=== PATIENT | female | born 1995 | race American Indian/Alaskan Native ===

== ENCOUNTER 2019-12-27 14:56 | Emergency (ER) | payer SELFPAY ==
[2019-12-27 15:17] VITALS: BP 124/89
--- NOTE | 2019-12-27 15:19 | Emergency Department Report ---
Blank Doc - Documentation Documentation: 24-year-old female that present swith SOB and URI symptoms. This initial assessment/diagnostic orders/clinical plan/treatment(s) is/are subject to change based on patient's health status, clinical progression and re- assessment by fellow clinical providers in the ED. Further treatment and workup at subsequent clinical providers discretion. Patient/guardians urged not to elope from the ED as their condition may be serious if not clinically assessed and managed. Initial orders include: 1- Patient sent to [facility] for further evaluation and treatment 2- CXR
--- NOTE | 2019-12-27 15:53 | Emergency Department Report ---
Minor Respiratory - HPI Chief Complaint: Upper Respiratory Infection Stated Complaint: SWETA/SICK Time Seen by Provider: 12/27/19 15:18 Duration: 2 Days Pain Location: Chest Severity: mild Minor Respiratory: Yes Rhinorrhea, Yes Able to Tolerate Fluids, No Sore Throat, No Ear Pain, No Cough, No Sick Contacts, No Hemoptysis, No Chest Pain, No Shortness of Breath, No Fever Other History: Patient is a 24-year-old -[place] female who comes to the ER today with cold-like symptoms including rhinorrhea and head congestion. [place] concerned that she has coronavirus. She has no cough. She has no fever or chills. Patient is ambulatory non-ill and nontoxic. She has not traveled and has no known ill contacts. X-ray as ordered by LEELEE in triage is negative for acute process ED Review of Systems ROS: Stated complaint: SWETA/SICK Other details as noted in HPI Comment: All other systems reviewed and negative ED Past Medical Hx - Past Medical History Previous Medical History?: No - Surgical History Past Surgical History?: Yes Additional Surgical History: Left ACL, Fracture of left femur - Family History Family history: no significant - Social History Smoking Status: Current Every Day Smoker Substance Use Type: Alcohol Minor Respiratory Exam - Exam General: Vital signs noted. No distress. Alert and acting appropriately. HEENT: Yes Moist Mucous Membranes, No Pharyngeal Erythema, No Pharyngeal Exudates, No Rhinorrhea, No Conjuctival Injection, No Frontal Tenderness, No Maxillary Tenderness Ear: Neither TM Bulge, Neither TM Erythema, Neither EAC Pain, Neither EAC Discharge Neck: Yes Supple, No Adenopathy Lungs: Yes Good Air Exchange, No Wheezes, No Ronchi, No Stridor, No Cough, No Labored Respirations, No Retractions, No Use of Accessory Muscles, No Other Abnormal Lung Sounds Heart: Yes Regular, No Murmur Abdomen: Yes Normal Bowel Sounds, No Tenderness, No Peritoneal Signs Skin: No Rash, No Edema Neurologic: Alert and oriented, no deficits. Musculoskeletal: Unremarkable. ED Course Vital Signs 12/27/19 15:15 Temperature 98.6 F Pulse Rate 83 Respiratory 20 Rate Blood Pressure 124/89 O2 Sat by Pulse 99 Oximetry - Reevaluation(s) Reevaluation #1: 12/27/19 15:57 Patient educated on handwashing and her concerns for coronavirus ED Medical Decision Making - Radiology Data Radiology results: report reviewed, image reviewed interpreted by me: Negative for acute process No acute process - Medical Decision Making X-ray negative for acute process - Differential Diagnosis Rule out pneumonia Critical care attestation.: If time is entered above; I have spent that time in minutes in the direct care of this critically ill patient, excluding procedure time. ED Disposition Clinical Impression: Common cold Disposition: DC-01 TO HOME OR SELFCARE Is pt being admited?: No Does the pt Need Aspirin: No Condition: Stable Instructions: Cold Symptoms (ED) Additional Instructions: WASH HANDS STAY WELL HYDRATED OVER THE COUNTER COLD SYMPTOM RELIEF NEEDED MOTRIN OR TYLENOL FOR PAIN OR FEVER CHEST XRAY NORMAL! Referrals: MERLENE BUCKLEY MD [Staff Physician] - 3-5 Days Time of Disposition: 15:52
--- NOTE | 2019-12-27 15:54 | XRay Report ---
CHEST 2 VIEWS INDICATION: sob. COMPARISON: None. FINDINGS: Support devices: None. Heart: Within normal limits. Pulmonary vasculature: Normal. Lungs/pleura: The lungs are normally expanded and clear. No airspace disease or pleural effusion. No pneumothorax. Additional findings: None. IMPRESSION: 1. Normal chest Signer Name: Trevor France MD Signed: 12/27/2019 3:49 PM Workstation Name: [id number]
== END 2019-12-27 16:40 | disposition home or self-care (01) ==
LOC: ED 14:56
DX: J00 Acute nasopharyngitis [common cold] (principal); F17.200 Nicotine dependence, unspecified, uncomplicated; Z98.890 Other specified postprocedural states
CPT/HCPCS: 71046; 99283

== ENCOUNTER 2020-12-12 15:54 | Emergency (ER) | payer SELFPAY ==
[2020-12-12 16:44] VITALS: BP 103/66
--- NOTE | 2020-12-12 17:43 | Emergency Department Report ---
ED General Adult HPI - General Chief complaint: Medical Clearance Stated complaint: LFT BREAST PAIN/RING Time Seen by Provider: 12/12/20 16:40 Source: patient Mode of arrival: Ambulatory Limitations: No Limitations - History of Present Illness Initial comments: 25-year-old P female with a left breast nipple piercing which has been in place since 2013 presents emerged department complaining of a few day history of left nipple redness swelling painful discharge with no no discharge of which she has a strong suspicion is infection so presents emerge department for further evaluation and treatment options. Ports no fever, chills, sweats reports no known trauma. Reports no nausea, no vomiting. Severity scale (0 -10): 9 Quality: dull, constant Consistency: constant Improves with: none Worsens with: movement (And catching) Associated Symptoms: denies: cough, diaphoresis, loss of appetite, malaise, nausea/vomiting, rash, shortness of breath, syncope, weakness Treatments Prior to Arrival: none - Related Data Previous Rx's Medication Instructions Recorded Last Taken Type Dicloxacillin Sodium 500 mg PO QID #40 capsule 12/12/20 Unknown Rx Ketorolac [Toradol] 10 mg PO Q6H PRN #14 tablet 12/12/20 Unknown Rx Allergies Allergy/AdvReac Type Severity Reaction Status Date / Time No Known Allergies Allergy Unverified 12/27/19 15:05 ED Review of Systems ROS: Stated complaint: LFT BREAST PAIN/RING Other details as noted in HPI Comment: All other systems reviewed and negative ED Past Medical Hx - Past Medical History Previous Medical History?: No - Surgical History Additional Surgical History: Left ACL, Fracture of left femur - Social History Smoking Status: Current Every Day Smoker Substance Use Type: None - Medications Home Medications: Home Medications Medication Instructions Recorded Confirmed Last Taken Type Dicloxacillin Sodium 500 mg PO QID #40 capsule 12/12/20 Unknown Rx Ketorolac [Toradol] 10 mg PO Q6H PRN #14 tablet 12/12/20 Unknown Rx ED Physical Exam - General Limitations: No Limitations General appearance: alert, in no apparent distress - Head Head exam: Present: atraumatic, normocephalic - Eye Eye exam: Present: normal appearance, PERRL, EOMI Pupils: Present: normal accommodation - ENT ENT exam: Present: mucous membranes moist - Neck Neck exam: Present: normal inspection - Respiratory Respiratory exam: Present: normal lung sounds bilaterally, chest wall tenderness (Tenderness to the left nipple region with with with redness and a small pustule attached to the tip of the nipple there is no masses, no induration, no orange peeling, no no edema to the actual breast. No nipple piercing in place no tenderness to the tail of Reza. 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 Absent: respiratory distress - Cardiovascular Cardiovascular Exam: Present: regular rate, normal rhythm. Absent: systolic murmur, diastolic murmur, rubs, gallop - GI/Abdominal GI/Abdominal exam: Present: soft, normal bowel sounds - Extremities Exam Extremities exam: Present: normal inspection - Back Exam Back exam: Present: normal inspection - Neurological Exam Neurological exam: Present: alert, oriented X3 - Psychiatric Psychiatric exam: Present: normal affect, normal mood - Skin Skin exam: Present: warm, dry, intact, normal color. Absent: rash ED Course Vital Signs 12/12/20 16:39 Temperature 98.2 F Pulse Rate 76 Respiratory 18 Rate Blood Pressure 103/66 O2 Sat by Pulse 100 Oximetry ED Medical Decision Making - Lab Data Lab Results 12/12/20 Range/Units 17:02 HCG, Qual Negative (Negative) - Medical Decision Making 25-year-old F Stateless female with past medical history of nipple piercing which now area is infected and need for treatment plan is to place her on dicloxacillin as well as some analgesic medication and have her follow-up with her primary care provider in 2 to 3 days to reevaluate her infection status Critical care attestation.: If time is entered above; I have spent that time in minutes in the direct care of this critically ill patient, excluding procedure time. ED Disposition Clinical Impression: Nipple infection Disposition: DC-01 TO HOME OR SELFCARE Is pt being admited?: No Does the pt Need Aspirin: No Condition: Stable Instructions: Mastitis Prescriptions: Dicloxacillin Sodium 500 mg PO QID #40 capsule Ketorolac [Toradol] 10 mg PO Q6H PRN #14 tablet PRN Reason: Pain Referrals: MERLENE BUCKLEY MD [Staff Physician] - 2-3 Days (Please follow-up for wound reevaluation)
[2020-12-12] MEDS ORDERED: HYDROcodone/ACETAMINOPHEN 5-325 MG TAB PO STA (18:36)
== END 2020-12-12 19:03 | disposition home or self-care (01) ==
LOC: ED 15:54
DX: N61.0 Mastitis without abscess (principal); F17.200 Nicotine dependence, unspecified, uncomplicated; Z79.899 Other long term (current) drug therapy; Z98.890 Other specified postprocedural states
CPT/HCPCS: 36415; 84703